=== PATIENT | female | born 1990 | race Caucasian/White ===

== ENCOUNTER 2019-09-19 14:37 | Emergency (ER) | payer SELFPAY ==
[~2019-09-19 14:37] MED LIST: ALBU17AE3 INH
--- OUTSIDE RECORDS SUMMARY | 2019-09-19 14:43 | XMS REPORT | Continuity of Care Document ---
Author Organization Unknown Address Unknown Phone Unavailable Allergies There is no data. Medications There is no data. Problems There is no data. Procedures There is no data. Results Test Result Range CULTURE, URINE - 09/03/18 03:51 CULTURE, URINE, ROUTINE SEE NOTE NRG SOPHIA - 10/27/18 10:26 SOPHIA SCREEN, IFA NEGATIVE NEGATIVE VITAMIN B12/FOLATE, SERUM PANEL - 10:26 VITAMIN B12 358 pg/mL 200-1100 FOLATE, SERUM 3.9 ng/mL NRG Encounters ACCT No. Visit Date/Time Discharge Status Pt. Type Provider Facility Loc./Unit Complaint [id number] 02/18/2017 11:00:00 02/18/2017 23:59: 59 [facility] Outpatient Adult Medicine [id number] 09/14/2019 18:15:00 09/14/2019 23:59: 59 [facility] [id number] 10/27/2018 09:20:00 Document Registration [id number] 09/01/2018 16:40:00 Document Registration
--- NOTE | 2019-09-19 14:53 | ED Lower Extremity ---
General Chief Complaint: Trauma-Non Activation Stated Complaint: FALL; HIP PAIN Nursing Triage Note: Was team penning on horses when her saddle broke and she fell, landing on her right hip. Source: patient History of Present Illness Date Seen by Provider: September 19, 2019 Time Seen by Provider: 14:37 Initial Comments 29-year-old female presenting with left hip and leg pain after being bucked off a horse. She states that her several broken she was thrown off of a horse. This happened just prior to arrival in the emergency department. She denies any head trauma or loss of consciousness. She has no chest or abdominal pain. She has no numbness or weakness in her legs but has pain in the left hip worse with movement. She states that she was unable to bear weight due to the pain. She reports having a tubal ligation in the past. She states her last menstrual period was August 28. She last ate around 1050 this morning and was drinking water in the truck on the way to the emergency department. Allergies and Home Medications Allergies Coded Allergies: codeine (Unverified Adverse Reaction, Unknown, nausea/vomiting, 09/19/19) Uncoded Allergies: ROBITUSSIN (Allergy, Intermediate, SOB, LOSS OF VISION, SHAKINESS, 05/29/11) Home Medications Albuterol 17 Gm Inh, 2 PUFF INH PRN, (Reported) Patient Home Medication List Home Medication List Reviewed: Yes Review of Systems Constitutional: No chills, No fever EENTM: no symptoms reported Respiratory: no symptoms reported Cardiovascular: no symptoms reported Gastrointestinal: no symptoms reported Genitourinary: no symptoms reported Musculoskeletal: see HPI, joint pain (left hip pain) Skin: no symptoms reported Past Pwzckwh-Zvxzqq-Hswytd Hx Past Med/Social Hx: Reviewed Nursing Past Med/Soc Hx Patient Social History Alcohol Use: Denies Use Recreational Drug Use: No Smoking Status: Current Everyday Smoker Type Used: Cigarettes 2nd Hand Smoke Exposure: Yes Physical Abuse: No Sexual Abuse: No Mistreated: No Fear: No Past Medical History Surgeries: Yes (brachial plexus surgery; bladder; ) Tubal Ligation Respiratory: No Cardiac: Yes (raynauds ) Neurological: No Genitourinary: No Gastrointestinal: No Musculoskeletal: No Endocrine: No HEENT: No Cancer: No Psychosocial: No Integumentary: No Physical Exam Vital Signs Vital Signs - First Documented 09/19/19 09/19/19 14:42 16:00 Temp 37.0 Pulse 98 Resp 16 B/P (MAP) 120/67 (84) Pulse Ox 98 O2 Delivery Room Air Capillary Refill : Height, Weight, BMI Height: '" Weight: lbs. oz. kg; BMI Method: General Appearance: WD/WN, moderate distress HEENT: PERRL/EOMI, pharynx normal Neck: non-tender, full range of motion, supple, normal inspection Cardiovascular: normal peripheral pulses, regular rate, rhythm Respiratory: chest non-tender, lungs clear, normal breath sounds, no respiratory distress, no accessory muscle use Gastrointestinal: normal bowel sounds, non tender, soft, no pulsatile mass Hips: left hip limited range of motion (pain with movement and palpation of left hip. 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 Will obtain pelvis and hip xrays to evaluate her hip and pelvis to look for fractures. Progress Note #2: Time: 15:00 Progress Note I did not see any obvious fracture or dislocation on the plain films of her pelvis and left hip. With her still having severe pain will add on an order for CT scan without contrast to look for fracture or bony injury with finer detail. Pt still refusing pain medicine because she did not want to "feel foggy or out of it" Progress Note #3: Time: 15:38 Progress Note While waiting on the CT results the plain films were read out by radiology as no acute finding. Patient did state she would be willing to take ibuprofen but did not want anything stronger. Given a dose of Ibuprofen while waiting on CT result. Pt also now states she has had a prior hairline fracture to that hip that required her to not ride horses for a few months to let it heal. Progress Note #4: Time: 15:[address] pelvis shows calcification of the sacroiliac joints but no fracture or dislocation. Will review results with pt and see how she wants to proceed for medicine and treatment at home. She wanted to try Ibuprofen at home. She states normally just taking 400 mg make s her sleepy so she refused prescription for Ibuprofen and did not want anything stronger for pain. Crutches for weight bearing as tolerated and counseled that if she is not improving then may need to have repeat evaluation or MRI to look further into her pain. Diagnostic Imaging Diagon[facility] Imaging: Xray Plain Films/CT/US/NM/MRI: pelvis, hip Comments NAME: KETAN HAN [employer] REC#: [id number] PT STATUS: REG ER : 1990 PHYSICIAN: TOMA LEE MD ADMIT DATE: 09/19/19/ER FS Draft Date of Exam:09/19/19 PELVIS WITH LEFT HIP 2-3 VIEW EXAMINATION: Left hip unilateral 2 or 3 views (w/pelvis when done) HISTORY: Fall. COMPARISON: None available. FINDINGS: Alignment is normal. No fracture. Hip joint spaces are normal. IMPRESSION: No fracture. Dictated on workstation # [id number] Dict: 09/19/19 1506 Trans: 09/19/19 1516 [facility] [id number] Interpreted by: IESHA CASTRO MD Electronically signed by: Diagonstic Imaging: CT Plain Films/CT/US/NM/MRI: pelvis Comments NAME: KETAN HAN [employer] REC#: [id number] PT STATUS: REG ER : 1990 PHYSICIAN: TOMA ELE MD ADMIT DATE: 09/19/19/ER FS Draft Date of Exam:09/19/19 CT PELVIS WO PROCEDURE: CT pelvis without contrast. TECHNIQUE: Multiple contiguous axial images were obtained through the pelvis without the use of intravenous contrast. Sagittal and coronal reformations were performed. Auto Exposure Controls were utilized during the CT exam to meet ALARA standards for radiation dose reduction. INDICATION: Fall from horse, pain. COMPARISON: Imaging from same date. FINDINGS: Sclerosis about the bilateral sacroiliac joints is present, particularly on the iliac bones. No acute fracture or dislocation. Mild degenerative changes of the pubic symphysis. No abnormal sclerosis or collapse of the femoral heads. The urinary bladder is unremarkable. Bilateral tubal ligation. No evidence of bowel obstruction within the [id number]. The appendix is unremarkable. No significant free air or free fluid within the pelvis. No large intramuscular hematoma. No definite hip joint effusion. IMPRESSION: 1. No acute osseous abnormality. 2. Significant sclerosis about the bilateral sacroiliac joints. 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 Dictated on workstation # [id number] Dict: 09/19/19 1539 Trans: 09/19/19 1548 [facility] [id number] Interpreted by: BROOKE OLIVAS MD Electronically signed by: Departure Impression Primary Impression: Contusion of left hip, initial encounter Additional Impression: Animal-rider injured by fall from or being thrown from horse in noncollision accident, initial encounter Disposition: 01 HOME, SELF-CARE Condition: Stable Departure-Patient Inst. Decision time for Depature: 16:04 Referrals: NO,LOCAL PHYSICIAN (PCP) Primary Care Physician [facility] Patient Instructions: Acute Pain, Adult (DC), Contusion (DC), Hip Pain (DC), How to Use Crutches Add. Discharge Instructions: Ice and elevate your hip and leg to help with pain. Continue Ibuprofen and Acetaminophen to help control your pain. If you have worsening problems or pain is not controlled then you may need to see clinic or Orthopedics about your injury. All discharge instructions reviewed with patient and/or family. Voiced understanding. Work/School Note: Work Release Form Date Seen in the Emergency Department: September 19, 2019 Return to Work: Sep 21, 2019 Other Restrictions Listed Below: Use crutches and weight bear as tolerated on Left leg TOMA LEE MD September 19, 2019 14:53
--- NOTE | 2019-09-19 15:17 | Diagnostic Imaging Report ---
EXAMINATION: Left hip unilateral 2 or 3 views (w/pelvis when done) HISTORY: Fall. COMPARISON: None available. FINDINGS: Alignment is normal. No fracture. Hip joint spaces are normal. IMPRESSION: No fracture. Dictated by: Dictated on workstation # [id number]
[2019-09-19] MEDS ORDERED: IBUPROFEN 800 MG (MOTRIN) TAB PO STA (15:40)
--- NOTE | 2019-09-19 15:49 | Diagnostic Imaging Report ---
PROCEDURE: CT pelvis without contrast. TECHNIQUE: Multiple contiguous axial images were obtained through the pelvis without the use of intravenous contrast. Sagittal and coronal reformations were performed. Auto Exposure Controls were utilized during the CT exam to meet ALARA standards for radiation dose reduction. INDICATION: Fall from horse, pain. COMPARISON: Imaging from same date. FINDINGS: Sclerosis about the bilateral sacroiliac joints is present, particularly on the iliac bones. No acute fracture or dislocation. Mild degenerative changes of the pubic symphysis. No abnormal sclerosis or collapse of the femoral heads. The urinary bladder is unremarkable. Bilateral tubal ligation. No evidence of bowel obstruction within the [id number]-iw-ilvd. The appendix is unremarkable. No significant free air or free fluid within the pelvis. No large intramuscular hematoma. No definite hip joint effusion. IMPRESSION: 1. No acute osseous abnormality. 2. Significant sclerosis about the bilateral sacroiliac joints. 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 Dictated by: Dictated on workstation # [id number]
[2019-09-19 16:00] VITALS: BP 118/62
== END 2019-09-19 16:34 | disposition home or self-care (01) ==
LOC: EDUNIT# 14:37 → ER FS 14:39
DX: S70.02XA Contusion of left hip, initial encounter (principal); F17.210 Nicotine dependence, cigarettes, uncomplicated; Z88.5 Allergy status to narcotic agent; Z88.8 Allergy status to other drugs, medicaments and biological substances; V80.010A Animal-rider injured by fall from or being thrown from horse in noncollision accident, initial encounter
CPT/HCPCS: 72192; 73502